=== PATIENT | female | born 1935 | race Caucasian/White ===

== ENCOUNTER 2016-11-16 06:56 | Emergency (ER) | payer BC ==
--- NOTE | 2016-11-16 07:31 | Emergency Department Record ---
History of Present Illness - General Chief complaint: Female Urogenital Problem Stated complaint: PAIN IN PELVIC AREA Time Seen by Provider: 11/16/16 07:19 Source: Patient, Family (), RN notes reviewed Mode of Arrival: Ambulatory - History of Present Illness Initial comments: patient states lower abd pain which started 2-3 days ago and No vomiting or diarrhea and no dysuria. History of dementia and hushand present and helped with the history. PMH of diabetes and hypertension MD Complaint: Pelvic pain Onset/Timin -: Days(s) Location: Suprapubic Radiation: Non-radiating Quality: Aching Consistency: Constant Improves with: None Worsens with: None Patient : No Associated Symptoms: Denies other symptoms - Related Data Home Medications Medication Instructions Recorded Confirmed Last Taken Amlodipine Besylate [Norvasc] 10 mg PO DAILY 08/06/15 11/16/16 08/05/15 Insulin Detemir [Levemir Flextouch] 1 unit SQ DAILY 11/16/16 11/16/16 Unknown Previous Rx's Medication Instructions Recorded Cephalexin [Keflex] 500 mg PO QID #40 cap 11/16/16 Allergies Allergy/AdvReac Type Severity Reaction Status Date / Time No Known Drug Allergies Allergy Verified 08/06/15 08:56 Travel Screening - Travel/Exposure Within Last 30 Days Have you traveled within the last 30 days?: No Review of Systems Reviewed: No additional complaints except as noted below Constitutional: Reports: As per HPI. Denies: Chills, Fever, Malaise, Night sweats, Weakness, Weight change Eyes: Reports: As per HPI. Denies: Eye discharge, Eye pain, Photophobia, Vision change ENT: Reports: As per HPI. Denies: Congestion, Dental pain, Ear pain, Epistaxis , Hearing loss, Throat pain Respiratory: Reports: As per HPI. Denies: Cough, Dyspnea, Hemoptysis, Stridor, Wheezes Cardiovascular: Reports: As per HPI. Denies: Arrhythmia, Chest pain, Dyspnea on exertion, Edema, Murmurs, Orthopnea, Palpitations, Paroxysmal nocturnal dyspnea, Rheumatic Fever, Syncope Endocrine: Reports: As per HPI. Denies: Fatigue, Heat or cold intolerance, Polydipsia, Polyuria Gastrointestinal: Reports: As per HPI. Denies: Abdominal pain, Constipation, Diarrhea, Hematemesis, Hematochezia, Melena, Nausea, Vomiting Genitourinary: Reports: As per HPI, Dysuria, Frequency. Denies: Abnormal menses , Discharge, Dyspareunia, Hematuria, Incontinence, Retention, Urgency Musculoskeletal: Reports: As per HPI. Denies: Arthralgia, Back pain, Gout, Joint swelling, Myalgia, Neck pain Skin: Reports: As per HPI. Denies: Bruising, Change in color, Change in hair/ nails, Lesions, Pruritus, Rash Neurological: Reports: As per HPI. Denies: Abnormal gait, Confusion, Headache, Numbness, Paresthesias, Seizure, Tingling, Tremors, Vertigo, Weakness Psychiatric: Reports: As per HPI. Denies: Anxiety, Auditory hallucinations, Depression, Homicidal thoughts, Suicidal thoughts, Visual hallucinations Hematological/Lymphatic: Reports: As per HPI. Denies: Anemia, Blood Clots, Easy bleeding, Easy bruising, Swollen glands Past Medical History - SOCIAL HISTORY Smoking Status: Never smoker - RESPIRATORY Hx Respiratory Disorders: No - CARDIOVASCULAR Hx Cardio Disorders: Yes Hx Hypertension: Yes - NEURO Hx Neuro Disorders: No - GI Hx GI Disorders: Yes Hx Abdominal Pain: Yes Hx of Polyps: Yes Comment:: c/o occas diarrhea - Hx Genitourinary Disorders: No - ENDOCRINE Hx Endocrine Disorders: Yes Hx Diabetes: Yes - MUSCULOSKELETAL Hx Musculoskeletal Disorders: Yes Hx Arthritis: Yes - PSYCH Hx Psych Problems: No - HEMATOLOGY/ONCOLOGY Hx Hematology/Oncology Disorders: Yes Hx Cancer: Yes (colon) Family Medical History Any Significant Family History?: Yes Hx Diabetes: Mother *Diabetes Comment: mother and aunt Physical Exam - General General Appearance: Alert, Oriented x3, Cooperative, No acute distress - Head Head exam: Normal inspection - Eye Eye exam: Normal appearance, PERRL Pupils: Normal accommodation - ENT ENT exam: Normal exam, Mucous membranes moist, Normal external ear exam, Normal orophraynx, TM's normal bilaterally Ear exam: Normal external inspection. negative: External canal tenderness Nasal Exam: Normal inspection. negative: Discharge, Sinus tenderness Mouth exam: Normal external inspection, Tongue normal Teeth exam: Normal inspection. negative: Dental caries Throat exam: Normal inspection. negative: Tonsillar erythema, Tonsillar exudate - Neck Neck exam: Normal inspection, Full ROM. negative: Tenderness - Respiratory Respiratory exam: Normal lung sounds bilaterally. negative: Respiratory distress - Cardiovascular Cardiovascular Exam: Regular rate, Normal rhythm, Normal heart sounds - GI/Abdominal GI/Abdominal exam: Soft, Normal bowel sounds, Tenderness (lower abdominal pain mild, ) - Rectal Rectal exam: Deferred - exam: Deferred - Extremities Extremities exam: Normal inspection, Full ROM, Normal capillary refill. negative: Tenderness - Back Back exam: Reports: Normal inspection, Full ROM. Denies: Muscle spasm, Rash noted, Tenderness - Neurological Neurological exam: Alert, Normal gait, Oriented X3, Reflexes normal - Psychiatric Psychiatric exam: Normal affect, Normal mood - Skin Skin exam: Dry, Intact, Normal color, Warm Course Vital Signs 11/16/16 07:08 Temperature 97.6 F Pulse Rate [ 83 Pulse Ox Probe] Respiratory 16 Rate Blood Pressure 169/86 [Left Arm] Pulse Ox 98 Medical Decision Making - Lab Data Result diagrams: 11/16/16 07:40 11/16/16 07:40 Disposition Clinical Impression: Abdominal pain Qualifiers: Abdominal location: lower abdomen, unspecified Qualified Code(s): R10.30 - Lower abdominal pain, unspecified UTI (urinary tract infection) Qualifiers: Urinary tract infection type: acute cystitis Hematuria presence: without hematuria Qualified Code(s): N30.00 - Acute cystitis without hematuria Disposition: Home, Self-Care Condition: (1) Good Instructions: Urinary Tract Infection in Women (ED) Additional Instructions: follow up with Dr. Mas on thurs fluids Prescriptions: Cephalexin [Keflex] 500 mg PO QID #40 cap Forms: Patient Portal Access Time of Disposition: 08:34 Quality - Quality Measures Quality Measures: N/A - Blood Pressure Screening Does Patient Have Any of the Following: No Blood Pressure Classification: Pre-Hypertensive BP Reading Systolic Measurement: 169 Diastolic Measurement: 86 Screening for High Blood Pressure: Patient Exclusion, Hx of HTN [G9744]
[2016-11-16 08:08] LABS: BASO % 0.4 % (0-6); EOS % 1.6 % (0-6); HEMATOCRIT 41.5 % (35.0-47.0); HEMOGLOBIN 14.3 gm/dl (11.6-16.0); LYMPH % 24.8 % (16-45); MEAN CELL VOLUME 87.2 fl (81-97); MEAN CORPUSCULAR HGB CONC 34.5 g/dl (32-36); MEAN PLATELET VOLUME 9.8 fl (7.4-10.4); MONO % 9.2 % (0-9); PLATELET COUNT 242 K/uL (130-400); RED BLOOD COUNT 4.76 M/uL (3.80-5.40); RED CELL DISTRIBUTION WIDTH 12.6 % (11.5-14.5); WHITE BLOOD COUNT W/O DIFF 8.6 K/uL (4.2-12.2)
[2016-11-16 08:09] LABS: URINE APPEARANCE CLEAR; URINE BILIRUBIN NEGATIVE (NEGATIVE); URINE BLOOD LARGE (NEGATIVE); URINE COLOR YELLOW; URINE GLUCOSE (UA) NEGATIVE (NEGATIVE); URINE KETONE NEGATIVE (NEGATIVE); URINE LEUKOCYTE ESTERASE SMALL (NEGATIVE); URINE NITRITE NEGATIVE (NEGATIVE); URINE UROBILINOGEN 0.2 E.U./dL (0.20 - 1.00)
[2016-11-16 08:11] LABS: URINE BACTERIA FEW; URINE EPITHELIAL CELLS RARE (FEW); URINE RBC 21 - 35 (NONE SEEN)
[2016-11-16 08:19] LABS: ANION GAP 10.2 (7-16); CARBON DIOXIDE 19.8 mmol/L (22-30); CREATININE 1.7 mg/dL (0.52-1.04)
[2016-11-16] MEDS ORDERED: CEPHALEXIN 500 MG CAPSULE PO STA (08:34)
== END 2016-11-16 08:47 | disposition home or self-care (01) ==
LOC: ER 06:56
DX: N30.00 Acute cystitis without hematuria (principal); R10.30 Lower abdominal pain, unspecified
CPT/HCPCS: 80048; 81001; 85025; 99283

== ENCOUNTER 2017-04-08 08:23 | Emergency (ER) | payer BC ==
[2017-04-08] MEDS ORDERED: HUMULIN R 100 UNIT/ML VIAL SC ONE (08:24)
--- NOTE | 2017-04-08 08:36 | Emergency Department Record ---
History of Present Illness - General Chief complaint: Cold Stated complaint: CONGESTION Time Seen by Provider: 04/08/17 08:35 Source: Patient Mode of Arrival: Ambulatory Limitations: No limitations - History of Present Illness Initial comments: The patient is here due to a dry cough and congestion for 2 weeks. She also has a hoarse voice. The patient denies any fever, chills, ST, ear pain, SOB, or chest pain. She is concerned she may be getting pneumonia. Additionally her states she has had mild balance issues for 6 months to a year but that is nothing new today. MD complaint: Other Onset/Timin -: Week(s) Consistency: Constant Improves with: None Worsens with: None Associated Symptoms: Cough, Other - Related Data Previous Rx's Medication Instructions Recorded Doxycycline Monohydrate [Mondoxyne 100 mg PO BID #14 capsule 04/08/17 ] Allergies Allergy/AdvReac Type Severity Reaction Status Date / Time No Known Drug Allergies Allergy Verified 08/06/15 08:56 Travel Screening - Travel/Exposure Within Last 30 Days Have you traveled within the last 30 days?: No Review of Systems Constitutional: Reports: Malaise. Denies: Chills, Fever Eyes: Denies: Eye discharge ENT: Reports: Congestion Respiratory: Reports: Cough. Denies: Dyspnea Past Medical History - SOCIAL HISTORY Smoking Status: Never smoker Alcohol Use: None Drug Use: None - RESPIRATORY Hx Respiratory Disorders: No - CARDIOVASCULAR Hx Cardio Disorders: Yes Hx Hypertension: Yes - NEURO Hx Neuro Disorders: No - GI Hx GI Disorders: Yes Hx Abdominal Pain: Yes Hx of Polyps: Yes Comment:: c/o occas diarrhea - Hx Genitourinary Disorders: No - ENDOCRINE Hx Endocrine Disorders: Yes Hx Diabetes: Yes - MUSCULOSKELETAL Hx Musculoskeletal Disorders: Yes Hx Arthritis: Yes - PSYCH Hx Psych Problems: No - HEMATOLOGY/ONCOLOGY Hx Hematology/Oncology Disorders: Yes Hx Cancer: Yes (colon) Family Medical History Any Significant Family History?: Yes Hx Diabetes: Mother *Diabetes Comment: mother and aunt Physical Exam - General General Appearance: Alert, Oriented x3, Cooperative, No acute distress - Head Head exam: Atraumatic, Normocephalic, Normal inspection - Eye Eye exam: Normal appearance, PERRL, EOMI - ENT ENT exam: Normal exam, Mucous membranes moist, Normal external ear exam, Normal orophraynx, TM's normal bilaterally Throat exam: Normal inspection. negative: Tonsillar erythema, Tonsillar exudate - Neck Neck exam: Normal inspection, Full ROM. negative: Lymphadenopathy, Tenderness - Respiratory Respiratory exam: Normal lung sounds bilaterally. negative: Rales, Respiratory distress - Cardiovascular Cardiovascular Exam: Regular rate, Normal rhythm, Normal heart sounds - GI/Abdominal GI/Abdominal exam: Soft, Normal bowel sounds. negative: Tenderness - Extremities Extremities exam: Normal inspection, Full ROM, Normal capillary refill. negative: Tenderness - Neurological Neurological exam: Alert. negative: Motor sensory deficit Course Vital Signs 04/08/17 08:28 Temperature 98.0 F Pulse Rate 90 Respiratory 20 Rate Blood Pressure 172/93 Pulse Ox 98 - Reevaluation(s) Reevaluation #1: The patient is doing very well at this time. She is up walking with her cane with no difficulty and is drinking fluids well. I did discuss the case with Dr. Mas and he states the patient is very forgetful about taking her Levimir and she frequently misses doses at night. She is to be sure to take her medicine and see him in the office very soon. 04/08/17 10:18 Medical Decision Making - Lab Data Result diagrams: 04/08/17 09:10 04/08/17 09:10 Disposition Disposition: Discharge Clinical Impression: Upper respiratory infection, acute Disposition: Home, Self-Care Condition: (2) Stable Instructions: Cold Symptoms (ED) Additional Instructions: Please take the Doxycycline as directed. Please be sure to take your Insulin and follow up with Dr. Mas in the office later this week or early next week. Please return to the ER for any worsening symptoms. Prescriptions: Doxycycline Monohydrate [Mondoxyne Nl] 100 mg PO BID #14 capsule Forms: Patient Portal Access Time of Disposition: 10:18 Quality - Quality Measures Quality Measures: N/A - Blood Pressure Screening View Details: Yes Does Patient Have Any of the Following: No Blood Pressure Classification: Pre-Hypertensive BP Reading Systolic Measurement: 143 Diastolic Measurement: 86 Screening for High Blood Pressure: < Pre-Hypertensive BP, F/U Documented > [ G8950] Pre-Hypertensive Follow-up Interventions: Referral to alternative/primary care provider.
[2017-04-08 09:20] LABS: BASO % 0.2 % (0-6); EOS % 0.8 % (0-6); GRAN % 65.2 % (47-80); HEMATOCRIT 43.4 % (35.0-47.0); HEMOGLOBIN 15.4 gm/dl (11.6-16.0); LYMPH % 24.8 % (16-45); MEAN CELL VOLUME 84.6 fl (81-97); MEAN CORPUSCULAR HGB CONC 35.5 g/dl (32-36); MEAN PLATELET VOLUME 10.3 fl (7.4-10.4); PLATELET COUNT 231 K/uL (130-400); RED BLOOD COUNT 5.13 M/uL (3.80-5.40); RED CELL DISTRIBUTION WIDTH 12.8 % (11.5-14.5); WHITE BLOOD COUNT W/O DIFF 8.8 K/uL (4.2-12.2)
[2017-04-08 09:36] LABS: BILIRUBIN,TOTAL 0.7 mg/dL (0.2-1.0); CREATININE 1.7 mg/dL (0.5-0.9)
[2017-04-08 09:37] LABS: TOTAL PROTEIN 7.1 g/dL (6.6-8.7)
[2017-04-08 09:42] LABS: ALBUMIN 4.3 g/dL (4.0-5.0)
[2017-04-08 09:44] LABS: ALB/GLOB RATIO 1.5 (1.1-1.8)
[2017-04-08] MEDS ORDERED: HUMULIN R 100 UNIT/ML VIAL SQ ONE (09:50)
--- NOTE | 2017-04-08 20:47 | RADIOLOGY REPORT ---
EXAM: CHEST 2 VIEWS HISTORY: CHEST CONGESTION, COUGH FOR TWO WEEKS. COPD HISTORY. TECHNIQUE: Upright PA and lateral views of the chest. COMPARISON: Two-view chest radiographic examination dated 11/08/2013. FINDINGS: The heart is not enlarged and the pulmonary vasculature is nondilated. The thoracic aorta is mildly tortuous and atherosclerotic. No confluent airspace opacity is seen, nor is there costophrenic angle blunting or pneumothorax. Mild degenerative changes are scattered within the visualized spine and shoulder girdles. Mild dextroconvex curvature of the thoracic spine is suggested, more pronounced in the interval. IMPRESSION: 1. NO RADIOGRAPHIC EVIDENCE OF ACUTE CARDIOPULMONARY DISEASE. 2. 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 JOB NUMBER: [id number] [facility]
== END 2017-04-08 10:27 | disposition home or self-care (01) ==
LOC: ER 08:23
DX: J06.9 Acute upper respiratory infection, unspecified (principal); R05 Cough; E11.65 Type 2 diabetes mellitus with hyperglycemia; I10 Essential (primary) hypertension; Z79.4 Long term (current) use of insulin
CPT/HCPCS: 71046; 80053; 85025; 96372; 99283; 99284

== ENCOUNTER 2017-05-06 00:34 | Emergency (ER) | payer BC ==
--- NOTE | 2017-05-06 01:00 | Emergency Department Record ---
History of Present Illness - General Chief Complaint: Abdominal Pain Stated Complaint: NOT FEELING WELL Time Seen by Provider: 05/06/17 00:42 Source: Patient Mode of Arrival: Wheelchair Limitations: No limitations - History of Present Illness Initial Comments: 81 yo female presents to ED for evaluation of "cough and chest congestion" symptoms, reports "we think I have pneumonia". Significant other provides the entire history of present illness due to dementia. SO denies fevers, chills, nausea, or vomiting symptoms. SO denies abdominal pain complaints. Patient has a history of HTN. MD Complaint: Cough Onset/Timin -: Week(s) Severity: Mild Consistency: Constant Improves With: Nothing Worsens With: Nothing Associated Symptoms: Denies other symptoms Treatments Prior to Arrival: None - Related Data Allergies Allergy/AdvReac Type Severity Reaction Status Date / Time No Known Drug Allergies Allergy Verified 08/06/15 08:56 Travel Screening - Travel/Exposure Within Last 30 Days Have you traveled within the last 30 days?: No - Travel/Exposure Within Last Year Have you traveled outside the [place] in the last year?: No - Additonal Travel Details Have you been exposed to anyone with a communicable illness?: No - Travel Symptoms Symptom Screening: None Review of Systems ROS unobtainable: Due to mental status, Other (Dementia) Respiratory: Reports: Cough Gastrointestinal: Denies: Abdominal pain, Vomiting Musculoskeletal: Denies: Joint swelling Past Medical History - SOCIAL HISTORY Smoking Status: Never smoker Alcohol Use: None Drug Use: None - RESPIRATORY Hx Respiratory Disorders: No - CARDIOVASCULAR Hx Cardio Disorders: Yes Hx Hypertension: Yes - NEURO Hx Neuro Disorders: No - GI Hx GI Disorders: Yes Hx Abdominal Pain: Yes Hx of Polyps: Yes Comment:: c/o occas diarrhea - Hx Genitourinary Disorders: No - ENDOCRINE Hx Endocrine Disorders: Yes Hx Diabetes: Yes - MUSCULOSKELETAL Hx Musculoskeletal Disorders: Yes Hx Arthritis: Yes - PSYCH Hx Psych Problems: No - HEMATOLOGY/ONCOLOGY Hx Hematology/Oncology Disorders: Yes Hx Cancer: Yes (colon) Hx Chemotherapy: No Hx Radiation Therapy: No Family Medical History Any Significant Family History?: No Hx Diabetes: Mother *Diabetes Comment: mother and aunt Physical Exam - General General Appearance: Alert, Oriented x3, Cooperative, No acute distress Limitations: No limitations - Head Head exam: Atraumatic, Normocephalic, Normal inspection Head exam detail: negative: Abrasion, Contusion, Lehman's sign, General tenderness, Hematoma, Laceration - Eye Eye exam: Normal appearance. negative: Conjunctival injection, Periorbital swelling, Periorbital tenderness, Scleral icterus - ENT Ear exam: negative: Auricular hematoma, Auricular trauma Nasal Exam: negative: Active bleeding, Discharge, Dried blood, Foreign body Mouth exam: negative: Drooling, Laceration, Muffled voice, Tongue elevation - Neck Neck exam: Normal inspection. negative: Meningismus, Tenderness - Respiratory Respiratory exam: Normal lung sounds bilaterally. negative: Rales, Respiratory distress, Rhonchi, Stridor - Cardiovascular Cardiovascular Exam: Regular rate, Normal rhythm, Normal heart sounds - GI/Abdominal GI/Abdominal exam: Soft. negative: Rebound, Rigid, Tenderness - Rectal Rectal exam: Deferred - exam: Deferred - Extremities Extremities exam: Normal inspection. negative: Calf tenderness, Pedal edema, Tenderness - Back Back exam: Denies: CVA tenderness (R), CVA tenderness (L) - Neurological Neurological exam: Alert, Normal gait - Psychiatric Psychiatric exam: Normal affect, Normal mood - Skin Skin exam: Normal color. negative: Abrasion Type of lesion: negative: abrasion Course Vital Signs 05/06/17 00:43 Temperature 97.6 F Pulse Rate 83 Respiratory 20 Rate Blood Pressure 206/117 Pulse Ox 98 - Reevaluation(s) Reevaluation #1: 05/06/17 00:57 EKG: NSR 69 Normal axis, normal intervals T wave version I, Nonspecific ST-T wave changes V4-V6 Reevaluation #2: 05/06/17 01:30 Labs reviewed, Glucose 532, AG 18, CO2 18. Labs are otherwise grossly unremarkable for an acute process. Insulin 10 units IV ordered. Reevaluation #3: 05/06/17 01:55 UA/Lipase were reviewed and are grossly unremarkable for an acute process. Reevaluation #4: 05/06/17 02:08 CXR: No acute process Patient and SO were updated on all results, recheck glucose 334. Repeat BP 183/ 115. Patient reports that she is feeling well and appears stable for discharge at this time. Medical Decision Making - Lab Data Result diagrams: 05/06/17 00:43 05/06/17 00:43 Disposition Disposition: Discharge Clinical Impression: Hyperglycemia Hypertension Qualifiers: Hypertension type: unspecified Qualified Code(s): I10 - Essential (primary) hypertension Dementia Qualifiers: Dementia type: unspecified type Dementia behavioral disturbance: without behavioral disturbance Qualified Code(s): F03.90 - Unspecified dementia without behavioral disturbance Disposition: Home, Self-Care Condition: (2) Stable Instructions: Diabetic Hyperglycemia (ED) Additional Instructions: Return to ED if your symptoms worsen or if you have any concerns. Follow-up with your family doctor in 1-3 days as directed. Forms: Patient Portal Access Time of Disposition: 02:10 Quality - Quality Measures Quality Measures: N/A - Blood Pressure Screening Does Patient Have Any of the Following: Active Dx of HTN Blood Pressure Classification: Hypertensive Reading Systolic Measurement: 206 Diastolic Measurement: 117 Screening for High Blood Pressure: Patient Exclusion, Hx of HTN [G9744]
[2017-05-06 01:04] LABS: BASO % 0.4 % (0-6); GRAN % 56.6 % (47-80); HEMATOCRIT 41.5 % (35.0-47.0); HEMOGLOBIN 15.1 gm/dl (11.6-16.0); LYMPH % 32.3 % (16-45); MEAN CELL VOLUME 85.2 fl (81-97); MEAN CORPUSCULAR HGB CONC 36.4 g/dl (32-36); MEAN PLATELET VOLUME 10.4 fl (7.4-10.4); MONO % 9.7 % (0-9); PLATELET COUNT 189 K/uL (130-400); RED BLOOD COUNT 4.87 M/uL (3.80-5.40); RED CELL DISTRIBUTION WIDTH 12.3 % (11.5-14.5); WHITE BLOOD COUNT W/O DIFF 6.8 K/uL (4.2-12.2)
[2017-05-06 01:15] LABS: INFLUENZA A NEGATIVE (NEGATIVE); INFLUENZA B NEGATIVE (NEGATIVE)
[2017-05-06 01:28] LABS: ALB/GLOB RATIO 1.6 (1.1-1.8); ALBUMIN 4.6 g/dL (4.0-5.0); ALKALINE PHOSPHATASE 177 U/L (35-104); ALT/SGPT 37 U/L (<33); AST/SGOT 22 U/L (10.0-35.0); BLOOD UREA NITROGEN 21 mg/dL (8-23); CREATININE 1.7 mg/dL (0.5-0.9); EST GLOMERULAR FILTRATION RATE 31 mL/min; TOTAL PROTEIN 7.5 g/dL (6.6-8.7)
[2017-05-06 01:29] LABS: GLUCOSE,RANDOM 532 mg/dL (74-109)
[2017-05-06] MEDS ORDERED: HUMULIN R 100 UNIT/ML VIAL IV ONE (01:31)
[2017-05-06 01:48] LABS: URINE APPEARANCE CLEAR; URINE BILIRUBIN NEGATIVE (NEGATIVE); URINE BLOOD TRACE-I (NEGATIVE); URINE COLOR YELLOW; URINE KETONE NEGATIVE (NEGATIVE); URINE LEUKOCYTE ESTERASE NEGATIVE (NEGATIVE); URINE NITRITE NEGATIVE (NEGATIVE); URINE PROTEIN NEGATIVE (NEGATIVE); URINE UROBILINOGEN 0.2 E.U./dL (0.20 - 1.00)
[2017-05-06 01:50] LABS: URINE BACTERIA NONE SEEN; URINE EPITHELIAL CELLS 0 - 2 (FEW); URINE GLUCOSE (UA) >=1000 mg/dL (NEGATIVE); URINE RBC 0 - 2 (NONE SEEN); URINE WBC 0 - 2 (0-2/hpf)
--- NOTE | 2017-05-06 21:53 | RADIOLOGY REPORT ---
EXAM: CHEST 2 VIEWS HISTORY: COUGH. TECHNIQUE: PA and lateral views. COMPARISON: Two-view chest 04/08/17. FINDINGS: Heart size is within normal limits. Mild torsion of the aorta. No acute infiltrate identified. No pleural effusion or pneumothorax evident. Some calcifications in the upper abdomen may be within the pancreas suggesting chronic calcific pancreatitis. IMPRESSION: MILD TORSION OF THE AORTA. NO ACUTE INFILTRATE IDENTIFIED. JOB NUMBER: [id number] [facility]
== END 2017-05-06 02:23 | disposition home or self-care (01) ==
LOC: ER 00:34
DX: E11.65 Type 2 diabetes mellitus with hyperglycemia (principal); R10.84 Generalized abdominal pain; R05 Cough; I10 Essential (primary) hypertension; F03.90 Unspecified dementia, unspecified severity, without behavioral disturbance, psychotic disturbance, mood disturbance, and anxiety; Z79.4 Long term (current) use of insulin; Z87.891 Personal history of nicotine dependence
CPT/HCPCS: 36416; 71046; 80053; 81001; 82948; 83690; 84484; 85025; 87400; 93005; 93010; 96374; 99284

== ENCOUNTER 2018-02-15 11:25 | Emergency (ER) | payer BC ==
--- NOTE | 2018-02-15 12:07 | Emergency Department Record ---
History of Present Illness - General Chief Complaint: Dizziness Stated Complaint: DIZZY WHEN WALKING, LUMP IN CORNER OF R EYE Time Seen by Provider: 02/15/18 11:50 Source: Patient Mode of Arrival: Ambulatory Limitations: No limitations - History of Present Illness Initial Comments: The patient is here with her with the complaint of waking up at 7am with an unsteady gait. She was walking very "wobbly" at home per her who the hx is obtained from. The patient has significant dementia and is only complaining of her L eye bothering her. There has been no fever, RILEY, trauma, CP , SOB, or focal weakness. She also denies any blurred vision or eye pain. MD Complaint: Difficulty walking Onset/Timin -: Hour(s) History of Same: No History of Trauma: No - [place] Coma Scale Eye Response: (4) Open spontaneously Motor Response: (6) Obeys commands Verbal Response: (4) Confused conversation Presley Total: 14 - Related Data Allergies Allergy/AdvReac Type Severity Reaction Status Date / Time No Known Drug Allergies Allergy Verified 08/06/15 08:56 Travel Screening - Travel/Exposure Within Last 30 Days Have you traveled within the last 30 days?: No - Travel/Exposure Within Last Year Have you traveled outside the [place] in the last year?: No - Additonal Travel Details Have you been exposed to anyone with a communicable illness?: No - Travel Symptoms Symptom Screening: None Review of Systems Constitutional: Denies: Chills, Fever Eyes: Denies: Eye discharge ENT: Denies: Congestion Respiratory: Denies: Cough Cardiovascular: Denies: Arrhythmia, Chest pain Endocrine: Denies: Fatigue Gastrointestinal: Denies: Abdominal pain, Nausea Genitourinary: Denies: Dysuria Musculoskeletal: Denies: Arthralgia, Back pain Skin: Denies: Bruising Neurological: Reports: Abnormal gait Past Medical History - SOCIAL HISTORY Smoking Status: Never smoker Alcohol Use: None Drug Use: None - RESPIRATORY Hx Respiratory Disorders: No - CARDIOVASCULAR Hx Cardio Disorders: Yes Hx Hypertension: Yes - NEURO Hx Neuro Disorders: Yes Hx Dizziness: Yes - GI Hx GI Disorders: Yes Hx Abdominal Pain: Yes Hx of Polyps: Yes Comment:: c/o occas diarrhea - Hx Genitourinary Disorders: No - ENDOCRINE Hx Endocrine Disorders: Yes Hx Diabetes: Yes - MUSCULOSKELETAL Hx Musculoskeletal Disorders: Yes Hx Arthritis: Yes - PSYCH Hx Psych Problems: No - HEMATOLOGY/ONCOLOGY Hx Hematology/Oncology Disorders: Yes Hx Cancer: Yes (colon) Hx Chemotherapy: No Hx Radiation Therapy: No Family Medical History Any Significant Family History?: No Hx Diabetes: Mother *Diabetes Comment: mother and aunt Physical Exam - General General Appearance: Alert, Cooperative, No acute distress - Head Head exam: Atraumatic, Normocephalic, Normal inspection - Eye Eye exam: Normal appearance, PERRL, Conjunctival injection (L only mildly.), EOMI, Other (Neg L eye flourescein uptake L cornea.). negative: Nystagmus, Periorbital swelling, Periorbital tenderness - ENT Throat exam: Normal inspection. negative: Tonsillar erythema, Tonsillar exudate - Neck Neck exam: Normal inspection, Full ROM. negative: Tenderness - Respiratory Respiratory exam: Normal lung sounds bilaterally. negative: Respiratory distress - Cardiovascular Cardiovascular Exam: Regular rate, Normal rhythm, Normal heart sounds - GI/Abdominal GI/Abdominal exam: Soft, Normal bowel sounds. negative: Tenderness - Extremities Extremities exam: Normal inspection, Full ROM, Normal capillary refill. negative: Tenderness - Neurological Neurological exam: Alert, Normal gait (The patient is walking normally for her at this time with no ataxia.), Reflexes normal, Other (Neg Drift and Rhomberg exams.). negative: Abnormal gait, Altered, Motor sensory deficit, Oriented X3 ( The patient is oriented to name, place but not date or year which is normal for her per her .) - Psychiatric Psychiatric exam: negative: Anxious Course Vital Signs 02/15/18 11:27 Temperature 98.3 F Pulse Rate 96 H Respiratory 16 Rate Blood Pressure 194/96 Pulse Ox 99 - Reevaluation(s) Reevaluation #1: The patient is doing very well at this time. She is up walking normally with no ataxia. She is still having the L eye irritation but denies any blurred vision. I did discuss the case with her and he states she is walking and acting normally. He does not think she took her Insulin last night but will be sure she takes it tonight. Her blood sugar is now down to the 400's which it commonly has been in the past. Due to the patient not being in DKA and most likely she did not take her Insulin last night I do feel she is stable for discharge. 02/15/18 14:40 02/15/18 15:14 Medical Decision Making - Data Complexity MDM Data: Labs Ordered and/or Reviewed, X-Ray Ordered and/or Reviewed, EKG Ordered and/or Reviewed - Lab Data Result diagrams: 02/15/18 12:11 02/15/18 12:11 - EKG Data -: EKG Interpreted by Me EKG: No Acute Changes, Unchanged From Previous - Radiology Data Radiology results: Report reviewed (Head CT: Neg for any acute changes.) Disposition Disposition: Discharge Clinical Impression: Weakness Disposition: Home, Self-Care Condition: (2) Stable Instructions: Dizziness (ED) Additional Instructions: Please be sure to take your Insulin and use Tylenol for pain. Please use the Emycin ointment in the L eye 4 times a day for 5 days. Please see your family doctor for recheck later this week. Return to the ER for any worsening issues or problems. Forms: Patient Portal Access Time of Disposition: 14:43 Quality - Quality Measures Quality Measures: N/A - Blood Pressure Screening View Details: Yes Does Patient Have Any of the Following: No Blood Pressure Classification: Pre-Hypertensive BP Reading Systolic Measurement: 156 Diastolic Measurement: 88 Screening for High Blood Pressure: < Pre-Hypertensive BP, F/U Documented > [ G8950] Pre-Hypertensive Follow-up Interventions: Referral to alternative/primary care provider.
[2018-02-15 12:19] LABS: BASO % 0.2 % (0-6); EOS % 1.4 % (0-6); GRAN % 62.7 % (47-80); HEMATOCRIT 42.3 % (35.0-47.0); HEMOGLOBIN 14.7 gm/dl (11.6-16.0); LYMPH % 26.4 % (16-45); MEAN CELL VOLUME 84.8 fl (81-97); MEAN CORPUSCULAR HEMOGLOBIN 29.5 pg (27-33); MEAN CORPUSCULAR HGB CONC 34.8 g/dl (32-36); MEAN PLATELET VOLUME 10.8 fl (7.4-10.4); MONO % 9.3 % (0-9); PLATELET COUNT 216 K/uL (130-400); RED BLOOD COUNT 4.99 M/uL (3.80-5.40); WHITE BLOOD COUNT W/O DIFF 5.6 K/uL (4.2-12.2)
[2018-02-15 12:30] LABS: BLOOD UREA NITROGEN 13 mg/dL (8-23); CREATININE 1.5 mg/dL (0.5-0.9); EST GLOMERULAR FILTRATION RATE 35 mL/min
[2018-02-15 12:34] LABS: PARTIAL THROMBOPLASTIN TIME 24.7 SECONDS (24.5-39.1); PROTHROMBIN TIME (PATIENT) 10.1 SECONDS (9.5-12.1)
[2018-02-15 12:36] LABS: CREATINE PHOSPHOKINASE 64 U/L (26-192)
[2018-02-15 12:38] LABS: CKMB 3.3 ng/mL (<3.77)
[2018-02-15] MEDS ORDERED: 0.9 % SODIUM CHLORIDE 1,000 ML BAG IV ONE (12:46)
[2018-02-15] MEDS ORDERED: HUMULIN R 100 UNIT/ML VIAL IV ONE ×2 (12:46→13:48)
[2018-02-15 12:47] LABS: GLUCOSE,RANDOM 661 mg/dL (74-109)
[2018-02-15 12:53] LABS: URINE APPEARANCE CLEAR; URINE BILIRUBIN NEGATIVE (NEGATIVE); URINE BLOOD NEGATIVE (NEGATIVE); URINE COLOR YELLOW; URINE KETONE NEGATIVE (NEGATIVE); URINE LEUKOCYTE ESTERASE NEGATIVE (NEGATIVE); URINE NITRITE NEGATIVE (NEGATIVE); URINE PROTEIN NEGATIVE (NEGATIVE); URINE UROBILINOGEN 0.2 E.U./dL (0.20 - 1.00)
[2018-02-15 12:55] LABS: URINE GLUCOSE (UA) >=1000 mg/dL (NEGATIVE)
[2018-02-15] MEDS ORDERED: ERYTHROMYCIN OPTH OINT 3.5GM OPTH ONE (13:53)
[2018-02-15] MEDS ORDERED: PROPARACAINE HCL OPTH 15ML BTL OPTH ONE (14:54)
--- NOTE | 2018-02-16 13:38 | CT SCAN REPORT ---
EXAM: CT OF THE HEAD WITHOUT CONTRAST HISTORY: DIZZINESS, DIFFICULTY WITH BALANCE. FINDINGS HAVE BEEN PRESENT FOR TWO DAYS. TECHNIQUE: Routine noncontrast CT images of the head were obtained. Comparison: None FINDINGS: The ventricles, basal cisterns and sulci are mildly prominent consistent with generalized cerebral atrophy. No midline shift or mass effect. The cruz white differentiation is well maintained throughout both cerebral hemispheres without evidence for acute ischemia. No acute intracranial mass or hemorrhage. There are atherosclerotic calcifications. The paranasal sinuses and mastoid air cells are clear. The orbital contents are unremarkable. IMPRESSION: 1. NO ACUTE INTRACRANIAL ABNORMALITY. 2. MILD GENERALIZED CEREBRAL ATROPHY. JOB NUMBER: [id number] MTDD
== END 2018-02-15 15:10 | disposition home or self-care (01) ==
LOC: ER 11:25
DX: R53.1 Weakness (principal); H57.12 Ocular pain, left eye; R42 Dizziness and giddiness; I10 Essential (primary) hypertension; R26.89 Other abnormalities of gait and mobility; Z79.4 Long term (current) use of insulin
CPT/HCPCS: 36416; 70450; 80048; 81003; 82550; 82553; 82948; 84484; 85025; 85610; 85730; 93005; 93010; 96374; 96375; 99284; J7030